=== PATIENT | male | born 1990 | race Caucasian/White ===

== ENCOUNTER 2020-09-17 17:14 | Inpatient (IN) | payer MEDICAID ==
[~2020-09-17] VITALS: Ht 182.9 cm; Wt 77.8 kg
[2020-09-17 17:45] VITALS: BP 121/73
[2020-09-17] MEDS: LORazepam 2 MG TABLET PO PRN (19:56)
[2020-09-17] MEDS: HALOPERIDOL 5 MG TABLET PO PRN (19:56)
[2020-09-17] MEDS ORDERED: INFLUENZA VIRUS VACCINE QVS 2020-21 (6MO+)/PF 60 MCG/0.5 ML SYRINGE IM ONE (20:30)
[2020-09-17] MEDS ORDERED: ALBUTEROL SULFATE HFA 90 MCG/PUFF 8 GM INHALER IH PRN (21:30)
[2020-09-18] MEDS ORDERED: ALBUTEROL SULFATE HFA 90 MCG/PUFF 8 GM INHALER IH PRN (07:15)
[2020-09-18] MEDS ORDERED: CloNIDine HCL 0.1 MG TABLET PO PRN (07:15)
[2020-09-18] MEDS ORDERED: PETROLATUM,WHITE 28 GM JELLY TP PRN (07:15)
[2020-09-18] MEDS ORDERED: MAGNESIUM HYDROXIDE SUSPENSION 30 ML UDCUP PO PRN (07:15)
[2020-09-18] MEDS ORDERED: IBUPROFEN 400 MG TABLET PO PRN (07:15)
[2020-09-18] MEDS ORDERED: ONDANSETRON HCL 4 MG TABLET PO PRN (07:15)
[2020-09-18] MEDS ORDERED: NICOTINE 14 MG/24 HOUR PATCH TD PRN (07:15)
[2020-09-18] MEDS ORDERED: ACETAMINOPHEN 325 MG TABLET PO PRN (07:15)
[2020-09-18] MEDS ORDERED: DOCUSATE SODIUM 100 MG CAPSULE PO PRN (07:15)
[2020-09-18] MEDS ORDERED: GuaiFENesin/D-METHORPHAN [SUGAR-FREE] 200-20MG/10 ML SYRUP UDCUP PO PRN (07:15)
[2020-09-18] MEDS ORDERED: LOPERAMIDE HCL 2 MG CAPSULE PO PRN (07:15)
[2020-09-18] MEDS ORDERED: MAG HYDROX/AL HYDROX/SIMETH ES 30 ML SUSPENSION UDCUP PO PRN (07:15)
[2020-09-18 08:11] VITALS: BP 110/66
[2020-09-18] MEDS: LORazepam 2 MG TABLET PO PRN ×2 (08:58→20:38)
[2020-09-18] MEDS: HALOPERIDOL 5 MG TABLET PO PRN (08:58)
[2020-09-18] MEDS: OLANZapine 5 MG TABLET PO SCH ×2 (11:01→20:38)
[2020-09-18 16:11] VITALS: BP 129/69
[2020-09-19 05:17] VITALS: BP 122/71
[2020-09-19 08:19] VITALS: BP 114/55
[2020-09-19] MEDS: LORazepam 2 MG TABLET PO PRN ×2 (08:56→16:58)
[2020-09-19] MEDS: OLANZapine 5 MG TABLET PO SCH ×2 (08:56→20:37)
[2020-09-19] MEDS: HALOPERIDOL 5 MG TABLET PO PRN ×2 (08:57→16:58)
[2020-09-19 16:13] VITALS: BP 117/61
[2020-09-20 05:43] VITALS: BP 99/63
[2020-09-20] MEDS: OLANZapine 5 MG TABLET PO SCH ×2 (09:41→20:41)
[2020-09-20 16:34] VITALS: BP 126/82
[2020-09-20] MEDS: HALOPERIDOL 5 MG TABLET PO PRN (18:11)
[2020-09-20] MEDS: LORazepam 2 MG TABLET PO PRN (18:11)
[2020-09-21 02:21] VITALS: BP 121/82
[2020-09-21] MEDS: OLANZapine 5 MG TABLET PO SCH (08:40)
[2020-09-21 09:11] VITALS: BP 107/85
[2020-09-21] MEDS ORDERED: OLAN5TAB2 PO (12:08)
== END 2020-09-21 14:40 | disposition home or self-care (01) | DRG 750 ==
LOC: B3A 18:51
DX: F25.1 Schizoaffective disorder, depressive type (principal); F12.10 Cannabis abuse, uncomplicated; I95.9 Hypotension, unspecified; R10.13 Epigastric pain; Z28.21 Immunization not carried out because of patient refusal
CPT/HCPCS: J3535; Z7610